=== PATIENT | male | born 1950 | race Caucasian/White ===

== ENCOUNTER → 2021-05-30 | Outpatient (CLI) | payer MEDICARE ==
[~2021-05-30] MED LIST: ALFU10 PO; ASPI325 PO; Aspirin EC81 MG PO; CEPH500 PO; Cipro500 MG PO; EYE; FINA5 PO; Flagyl500 MG PO; HYDACE5 PO; HYDR1TAB94 PO; LATA.005SO OU; META800 PO; NAPR500 PO; NAPR550 PO; OXYACE5T PO; Rapaflo8 MG PO; SENN187 PO; SULTRIDS PO; TIMO.5OPSO BOTHEYES; TIMOPTIC 0.5%1 EACH BOTHEYES; Xalatan2.5 ML BOTHEYES
== END | disposition home or self-care (01) ==
LOC: LAB SHORT 12:00
DX: R31.9 Hematuria, unspecified (principal)
CPT/HCPCS: 87086

== ENCOUNTER → 2021-10-02 | Outpatient (CLI) | payer MEDICARE | END | disposition home or self-care (01) | LOC: LAB SHORT 12:00 | DX: N39.0 Urinary tract infection, site not specified (principal) | CPT/HCPCS: 87077; 87086; 87186 ==

== ENCOUNTER → 2021-10-11 | Outpatient (CLI) | payer MEDICARE | END | disposition home or self-care (01) | LOC: LAB SHORT 13:45 → LAB 13:45 | DX: N39.0 Urinary tract infection, site not specified (principal) | CPT/HCPCS: 87086 ==

== ENCOUNTER → 2022-02-26 | Outpatient (CLI) | payer MEDICARE | END | disposition home or self-care (01) | DX: R30.0 Dysuria (principal) ==

== ENCOUNTER → 2022-03-07 | Outpatient (CLI) | payer MEDICARE | END | disposition home or self-care (01) | LOC: LAB SHORT 12:00 → LAB 12:00 | DX: N40.1 Benign prostatic hyperplasia with lower urinary tract symptoms (principal) | CPT/HCPCS: 87086 ==

== ENCOUNTER → 2022-07-31 | Outpatient (CLI) | payer MEDICARE | END | disposition home or self-care (01) | LOC: LAB SHORT 07:43 → LAB 07:43 | DX: L60.2 Onychogryphosis (principal); B35.1 Tinea unguium | CPT/HCPCS: 88304; 88312 ==

== ENCOUNTER 2022-10-03 10:06 | Inpatient (IN) | payer MEDICARE ==
[2022-10-03] VITALS (21 sets, daily range): BP systolic 76–115; BP diastolic 55–85
[~2022-10-03] VITALS: Ht 182.9 cm; Wt 90.0 kg
[~2022-10-03 10:06] MED LIST changes: +DOCU100 PO; +MIRALAX17 GM PO; +TIMO.25OPS BOTHEYES; -TIMOPTIC 0.5%1 EACH BOTHEYES
[2022-10-03 11:20] LABS: BASOPHILS ABSOLUTE AUTO 0.07 K/mm3 (0.00-0.23); BASOPHILS PERCENT AUTO 1 % (0-2); EOSINOPHILS PERCENT AUTO 0 % (0-6); Hemoglobin 18.5 g/dL (13.5-17.5); IMMATURE GRAN ABSOLUTE AUTO 0.02 K/mm3 (0.00-0.10); IMMATURE GRAN PERCENT AUTO 0 % (0-1); LYMPHOCYTES ABSOLUTE AUTO 1.39 K/mm3 (0.84-5.20); LYMPHOCYTES PERCENT AUTO 18 % (21-46); MONOCYTES ABSOLUTE AUTO 1.18 K/mm3 (0.16-1.47); MONOCYTES PERCENT AUTO 15 % (4-13); Mean Corpuscular HGB 29.4 pg (26.0-34.0); Mean Corpuscular HGB Conc 33.6 g/dL (31.5-36.5); Mean Corpuscular Volume 87 fL (80-100); Mean Platelet Volume 12.1 fL (9.1-12.4); NEUTROPHILS ABSOLUTE AUTO 5.02 K/mm3 (1.96-9.15); NEUTROPHILS PERCENT AUTO 65 % (41-73); Platelet Count 209 K/mm3 (150-400); RDW Coefficient Variation 15.9 % (11.7-14.2); RDW Standard Deviation 49.1 fL (35.1-46.3); White Blood Cell Count 7.68 K/mm3 (4.00-11.30)
[2022-10-03 11:31] LABS: Albumin, Blood 3.3 g/dL (3.4-5.0); Albumin/Globulin Ratio 0.6 (0.8-1.8); Bilirubin, Total 0.6 mg/dL (0.1-1.0); Bun/Creatinine Ratio 38.7 (12.0-20.0); Creatinine, Blood 2.84 mg/dL (0.60-1.20); Globulin, Blood 5.2 g/dL (2.2-4.0); Total Protein, Blood 8.5 g/dL (6.4-8.2)
[2022-10-03 11:45] LABS: Base Excess Venous 10.7 mmol/L; Bicarbonate Venous 31.6 mmol/L (24.0-30.0)
[2022-10-03] MEDS ORDERED: TRILEPTAL PO (15:08)
[2022-10-03] MEDS ORDERED: TERB250 PO (15:08)
[2022-10-03] MEDS ORDERED: OXYB5 PO (15:09)
--- NOTE | 2022-10-03 17:00 | NUR ---
ADMISSION AND TRANSFER TO OR PATIENT ADMITTED TO MEDICAL FOR WITH RESP. FAILURE-HYPOXIA. PATIENT HAS A SMALL BOWEL OBSTRUCTION AND PATIENT CAN'T REMEMBER WHEN HE HAD A GOOD BM. ABD. DISTENDED AND TIGHT. BOWEL TONES ABSENT. PATIENT DENIES ANY NAUSEA. PATIENT ALERT AND ABLE TO ANSWER QUESTIONS. PATIENT EASILY SOB. AUDIBLE WHEEZES AND CONGESTION. PATIENT TITRATED UP TO 6 LITERS O2 PRIOR TO TRANSFERING TO OR/DAY SURGERY FOR PROCEDURE. PRESENT ON THE PHONE WHILE SURGEON DISCUSSED PLAN.
--- NOTE | 2022-10-03 17:52 | NUR ---
PT SOCKS AND WEDDING RING REMOVED PRIOR TO SURGERY, RETURNED TO PT'S ROOM, ROOM 325 AND PLACED INTO HIS BELONGING BAG.
--- NOTE | 2022-10-03 18:48 | NUR ---
REPORT/BELONGINGS TELEPHONE REPORT RECEIVED FROM JULIA SEGURA. PT CURRENTLY IN OR. BELONGINGS BROUGHT TO ICU BY DISCHARGE PLANNER. BELONGINGS BAG PLACED IN ICU 13. BELONGINGS INCLUDE GLASSES, CLOTHING, WALLET WITH ID AND CREDIT CARDS, AND YELLOW RING WITH 5 WHITE STONES.
[2022-10-03 19:52] LABS: PCO2 Arterial 58.7 mmHg (35-45); PO2 Arterial 61.8 mmHg (80-100); pH Blood Arterial 7.36 (7.35-7.45)
[2022-10-03 20:18] LABS: Source, Urine Foley catheter
[2022-10-03 20:31] LABS: Appearance, Urine Hazy (Clear); Blood, Urine 4+ (Neg); Color, Urine Yellow (P-Yellow); Glucose Qualitative, Urine Neg (Neg); Ketones, Urine 1+ (Neg); Leukocyte Esterase, Urine 2+ (Neg); Nitrite, Urine Neg (Neg); Protein, Urine 2+ (Neg); Specific Gravity, Urine 1.025 (1.003-1.022); Urobilinogen, Urine 1+ (Normal)
[2022-10-03 20:54] LABS: Bilirubin, Urine 2+ (Neg)
[2022-10-03 20:56] LABS: Bacteria Many /hpf; Hyaline Casts 0-2 /lpf (0-2); Squamous Epithelial Cells Mod /hpf (Few)
--- NOTE | 2022-10-03 21:01 | NUR ---
PATIENT TO ROOM FROM OR AT 1910. PATIENT INTUBATED AND SEDATED. STARTED ON PROPOFOL WHEN ARRIVED TO ICU. OPEN EYES, FOLLOWS COMMANDS, NODS YES/NO. DENIES PAIN AT THIS TIME. VENT AC VC+ 16/450/5/55% RR 18. LS DIM IN BASES. HR SR 70s. BP STABLE. NG TO LIS, GREEN BILE DRAINING. GILBERT IN PLACE FROM PROCEDURE, CARSON URINE DRAINING TO GRAVITY, UA SENT TO LAB. SURGICAL INCISIONS TO LEFT ABDOMEN OPEN TO AIR AND INTACT. UPDATED ON PATIENT CONDITION.
[2022-10-04] VITALS (56 sets, daily range): BP systolic 70–124; BP diastolic 51–81
[2022-10-04 03:41] LABS: Hematocrit 44.8 % (37.0-53.0); Hemoglobin 14.8 g/dL (13.5-17.5); Mean Corpuscular HGB 29.5 pg (26.0-34.0); Mean Corpuscular Volume 89 fL (80-100); Mean Platelet Volume 12.2 fL (9.1-12.4); Platelet Count 161 K/mm3 (150-400); RDW Coefficient Variation 15.3 % (11.7-14.2); RDW Standard Deviation 50.2 fL (35.1-46.3); Red Blood Cell Count 5.02 M/mm3 (4.30-5.90); White Blood Cell Count 10.15 K/mm3 (4.00-11.30)
[2022-10-04 04:10] LABS: Bun/Creatinine Ratio 52.4 (12.0-20.0); Calcium, Blood 7.5 mg/dL (8.5-10.1); Creatinine, Blood 2.08 mg/dL (0.60-1.20); Potassium, Blood 3.8 mmol/L (3.5-5.5)
--- NOTE | 2022-10-04 06:03 | NUR ---
SHIFT SUMMARY PATIENT REMAINS INTUBATED AND SEDATED ON PROPOFOL, FENTANYL PRN. PATIENT RESPONDS TO VERBAL STIMULI, ABLE TO FOLLOW COMMANDS AND NOD YES/NO. 02 SATS 91% ON VENT AC VC+ 16/450/5/40% RR 18. THICK JUSTIN SECRETIONS SEUCTIONED FROM ETT. HR SR 60. BP HYPOTENSIVE THROUGH THE NIGHT, LEVOPHED STARTED. OG TO LIS 600 MLS DARK GREEN/BLACK BILE DRAINED. SURGICAL INCISIONS REMAIN INTACT AND WNL. BOWEL TONE HYPOACTIVE. GILEBRT PATENT AND DRAINING CARSON URINE TO GRAVITY.
[2022-10-04 06:31] LABS: BAND PERCENT MAN 14 % (0-8); BASOPHILS PERCENT MAN 0 % (0-2); EOSINOPHILS PERCENT MAN 0 % (0-6); LYMPHOCYTES ABSOLUTE MAN 0.81 K/mm3 (0.84-5.20); LYMPHOCYTES PERCENT MAN 8 % (21-46); MONOCYTES PERCENT MAN 6 % (4-13); NEUTROPHILS ABSOLUTE MAN 8.72 K/mm3 (1.96-9.15); SEG NEUTROPHILS PERCENT MAN 72 % (41-73); TOTAL CELLS COUNTED 100
--- NOTE | 2022-10-04 10:15 | NUR ---
PATIENT EDUCATED ON RISK RE: IGNITION SOURCES AND RISK OF INJURY WHILE OXYGEN IS IN USE. PATIENT VERBALIZED UNDERSTANDING OF EDUCATION AND HAD NO FURTHER QUESTIONS AT THIS TIME.
--- NOTE | 2022-10-04 10:30 | NUR ---
PT WAS EXTUBATED AT 0855. PT IS ON NC. A/O X4. DENIES PAIN OR SOB. NG TUBE PUTTING OUT GREEN FLUID. PROVIDING MOUTH SWABS FOR COMFORT OTHERWISE NPO. SWABBING HIS OWN MOUTH AND USING SUCTION NEEDED. OFF LEVOPHED. STATES PT'S BP IS NORMALLY ABOUT 100/60 AT BASELINE. NO SIGN OF DISTRESS.
--- NOTE | 2022-10-04 14:04 | NUR ---
Spoke with Primary RN Sushila and discussed case. Spouse was at bedside but has since left for possibly the day. Sushila reports spouse indicates that Pt is a poor historian and may not remember conversations. Pt resting in bed with his eyes opened. Offered supportive visit. Pt A&OX4. Listened as Pt reports feeling disorientated when he woke this AM and took a little while to orientate self after deductive reasoning. Listened as Pt describes the events leading up to hospital stay. Pt does show some signs of being a poor historian as evidenced by Pt asking this RN "did I tell you how I was disorientated this morning"? Continued supportive visit. Plan: Discuss code status and advanced care planning with Pt when spouse is at bedside. Palliative Care will remain available
--- NOTE | 2022-10-04 17:38 | NUR ---
SUMMARY PT EXTUBATED THIS AM TO NC. ON 6L NOW. A/O X4. DENIES PAIN. GREEN LIQUID FROM NG TUBE. BT'S HYPOACTIVE. ENEMA GIVEN PER DR. LEONARD, NO RESULTS YET. OFF LEVOPHED MOST OF THE DAY. MOUTH SWABS FOR COMFORT, STILL NPO. DOWNGRADED TO SURGICAL STATUS. NO SIGN OF DISTRESS.
--- NOTE | 2022-10-04 19:38 | NUR ---
ASSUMED CARE PATIENT IS ALERT AND ORIENTED X4. DENIES PAIN. 02 SATS 88-92% ON 6L VIA NC. DENIES SOB. HR SR 70s, BP STABLE, DENIES CP/PRESSURE. NG TO JD ROSS BILE DRAINING. MOUTH SWABS PROVIDED FOR DRY MOUTH WHILE PATIENT IS NPO. GILBERT CATH REMOVED. PATIENT EDUCATED ON RISK OF INJURY WHILE USING OXYGEN, NICOTINE PATCH IN PLACE PATIENT VERBALIZED UNDERSTANDING. CALL LIGHT IN REACH
[2022-10-05] VITALS: BP 101/65
--- NOTE | 2022-10-05 00:16 | NUR ---
WHILE INFUSING KEPPRA IN LEFT AC IV THE IV INFILTRATED. CALLED PHARMACY AND NO RECOMMENDED TREATMENT. WILL PULL IV, APPLY PRESSURE AND MONITOR SITE
--- NOTE | 2022-10-05 00:47 | NUR ---
REPORT GIVEN TO MEDICAL FLOOR RN, PATIENT TO ROOM 357 AT APPROX 0045. PATIENT REQUESTED BE NOTIFIED OF ROOM CHANGE IN THE MORNING AND NOT RIGHT NOW
[2022-10-05 01:04] VITALS: BP 101/70
--- NOTE | 2022-10-05 01:30 | NUR ---
TRANSFER PT ARRIVED TO 357 ROUGHLY 0055 FROM ICU 13, 4PER SLIDE TRANSFER TO BED. AOX4. DENIES PAIN, N/V OR DYSPNEA. NG TUBE CLAMPED UPON ARRIVAL & PLACED BACK TO LOW INT SUCTION. ON 6.5L HF O2 c SPO2 >90%. CONDOM CATH PLACED c NO OUTPUT @THIS TIME. ORIENTED TO & CALL LIGHT. WILL MONITOR.
[2022-10-05 04:54] LABS: BASOPHILS ABSOLUTE AUTO 0.01 K/mm3 (0.00-0.23); BASOPHILS PERCENT AUTO 0 % (0-2); EOSINOPHILS PERCENT AUTO 0 % (0-6); Hematocrit 43.3 % (37.0-53.0); Hemoglobin 14.2 g/dL (13.5-17.5); IMMATURE GRAN ABSOLUTE AUTO 0.04 K/mm3 (0.00-0.10); IMMATURE GRAN PERCENT AUTO 1 % (0-1); LYMPHOCYTES ABSOLUTE AUTO 0.87 K/mm3 (0.84-5.20); LYMPHOCYTES PERCENT AUTO 11 % (21-46); MONOCYTES PERCENT AUTO 10 % (4-13); Mean Corpuscular HGB 29.5 pg (26.0-34.0); Mean Corpuscular HGB Conc 32.8 g/dL (31.5-36.5); Mean Corpuscular Volume 90 fL (80-100); Mean Platelet Volume 11.8 fL (9.1-12.4); NEUTROPHILS ABSOLUTE AUTO 6.12 K/mm3 (1.96-9.15); NEUTROPHILS PERCENT AUTO 78 % (41-73); Platelet Count 157 K/mm3 (150-400); RDW Coefficient Variation 15.3 % (11.7-14.2); RDW Standard Deviation 50.4 fL (35.1-46.3); Red Blood Cell Count 4.81 M/mm3 (4.30-5.90); White Blood Cell Count 7.84 K/mm3 (4.00-11.30)
[2022-10-05 05:16] LABS: Calcium, Blood 8.4 mg/dL (8.5-10.1); Magnesium, Blood 2.4 mg/dL (1.6-2.4); Potassium, Blood 3.7 mmol/L (3.5-5.5)
--- NOTE | 2022-10-05 05:43 | NUR ---
SHIFT SUMMARY AOX4, TRANSFER FROM ICU EARLIER IN NIGHT. DENIES N/V, ANY PAIN OR DYSPNEA. VSS. WET, PRODUCTIVE COUGH, SPO2 >90% ON 6.5L HF O2, DOESNT WEAR O2 @BASELINE. NO BM THIS SHIFT, NG TUBE IN R NARES c 350ML DARK BROWN/GREEN DRAINAGE IN CANISTER SINCE ARRIVING TO FLOOR. CALL LIGHT IN REACH, WILL MONITOR.
[2022-10-05 07:45] VITALS: BP 116/77
[2022-10-05 15:17] VITALS: BP 123/81
[2022-10-05 17:20] LABS: Bun/Creatinine Ratio 65.3 (12.0-20.0); Calcium, Blood 8.6 mg/dL (8.5-10.1); Creatinine, Blood 0.83 mg/dL (0.60-1.20); Potassium, Blood 3.9 mmol/L (3.5-5.5)
--- NOTE | 2022-10-05 18:02 | NUR ---
SHIFT SUMMARY POD2 LAP DX LAPAROTOMY WITH VOLVULOUS TAKEDOWN, A/OX4, VSS, STRICT NPO T/O THE SHIFT, SMALL BOWEL FOLLOW THROUGH TODAY WITH FINAL RESULTS NOT YET AVAILABLE TO NURSING STAFF, PAIN TOLERABLE, NG REMOVED FROM SUCTION ONCE SMALL BOWEL FOLLOW THROUGH WAS STARTED, PT HAS DENIED NAUSEA T/O THE SHIFT. PT EDUCATED ON THE IMPORTANCE OF REPORTING ANY AMOUNT OF NAUSEA AFTER THE CONTRAST HAS BEEN GIVEN TO HIM AND THE RISKS OF ASPIRATION IF HE WAS TO VOMIT. NO ACUTE EVENTS THIS SHIFT, CALL LIGHT IN REACH, WILL REPORT TO ONCOMING NOC RN. PT EDUCATED ON RISK OF FIRE AND IGNITION SOURCES WHILE BEING ON OXYGEN. PT HAS NICOTINE PATCH ORDERED AND IN PLACE.
[2022-10-05 19:40] VITALS: BP 126/88
[2022-10-06 04:29] LABS: BASOPHILS ABSOLUTE AUTO 0.02 K/mm3 (0.00-0.23); BASOPHILS PERCENT AUTO 0 % (0-2); EOSINOPHILS PERCENT AUTO 0 % (0-6); Hemoglobin 14.8 g/dL (13.5-17.5); IMMATURE GRAN ABSOLUTE AUTO 0.08 K/mm3 (0.00-0.10); IMMATURE GRAN PERCENT AUTO 1 % (0-1); LYMPHOCYTES ABSOLUTE AUTO 1.17 K/mm3 (0.84-5.20); LYMPHOCYTES PERCENT AUTO 14 % (21-46); MONOCYTES PERCENT AUTO 8 % (4-13); Mean Corpuscular HGB 29.4 pg (26.0-34.0); Mean Corpuscular HGB Conc 32.2 g/dL (31.5-36.5); Mean Corpuscular Volume 91 fL (80-100); Mean Platelet Volume 11.8 fL (9.1-12.4); NEUTROPHILS ABSOLUTE AUTO 6.68 K/mm3 (1.96-9.15); NEUTROPHILS PERCENT AUTO 77 % (41-73); Platelet Count 162 K/mm3 (150-400); RDW Coefficient Variation 15.6 % (11.7-14.2); RDW Standard Deviation 51.8 fL (35.1-46.3); Red Blood Cell Count 5.04 M/mm3 (4.30-5.90); White Blood Cell Count 8.65 K/mm3 (4.00-11.30)
--- NOTE | 2022-10-06 04:38 | NUR ---
EOS NOTE: PATIENT PLEASANT AND COOPERATIVE, A/OX4, BEDREST ON 5L NC, NG TUBE IN PLACE. NO N/V NOTED DURING SHIFT. NOTIFIED OF ST DEPRESSION SLIGHTLY WORSENING SINCE 2099, MADE AWARE. NO NEW ORDERS AT THIS TIME. INCISION SITES ARE C/D/I, NG CLAMPED AT THIS TIME. 10/06-TO COMPLETE SECOND HALF OF FOLLOW THROUGH IN AM. BOWEL SOUNDS HYPOACTIVE THROUGHOUT SHIFT, ABD MILDLY DISTENDED AND MILDLY TENDER.
[2022-10-06 04:51] LABS: Bun/Creatinine Ratio 60.6 (12.0-20.0); Calcium, Blood 8.7 mg/dL (8.5-10.1); Creatinine, Blood 0.81 mg/dL (0.60-1.20); Phosphorus, Blood 1.8 mg/dL (2.5-4.9)
[2022-10-06 05:06] VITALS: BP 132/95
[2022-10-06 07:23] VITALS: BP 151/91
[2022-10-06 15:17] VITALS: BP 115/87
--- NOTE | 2022-10-06 16:23 | NUR ---
K PHOS ADMINISTRATION IV ADMINISTRATION STARTED THEN IV WENT BAD AND WAS PAUSED UNTIL VASCULAR ACCESS WAS REESTABLISHED. CURRENTLY INFUSING
[2022-10-06 17:25] LABS: Bun/Creatinine Ratio 54.2 (12.0-20.0); Calcium, Blood 8.8 mg/dL (8.5-10.1); Creatinine, Blood 0.85 mg/dL (0.60-1.20); Potassium, Blood 3.8 mmol/L (3.5-5.5)
[2022-10-06 20:39] VITALS: BP 124/80
[2022-10-06 22:33] LABS: Bun/Creatinine Ratio 51.7 (12.0-20.0); Calcium, Blood 8.1 mg/dL (8.5-10.1); Creatinine, Blood 0.72 mg/dL (0.60-1.20); Potassium, Blood 3.7 mmol/L (3.5-5.5)
[2022-10-07 02:20] VITALS: BP 126/88
--- NOTE | 2022-10-07 04:05 | NUR ---
RADIOCHEMICAL TECHNICIAN SUMMARY VSS. ALERT AND ORIENTED X 4. NG TUBE TO LOW INT SUCTION. DARK GREEN TINGED OUTPUT. NPO OTHER THAN ICE CHIPS. IVF INFUSING PER MD ORDERS - SOME CHANGES MADE - ANTIBIOTICS INFUSING WELL, SEE MAR FOR DETAILS. O2 PER NC WITH CONT PULSE OX. REMAINS IN THE 90'S, UNLESS GETING OUT OF BED. ASSISTED WITH URINAL, INCONT OF FECES AND LINEN CHANGED. HAS BEEN RESTING QUIETLY OTHERWISE FOR MOST OF THE SHIFT WITH EFW INTERRUPTIONS. CALL LIGHT IN REACH. RECEIVED FIRE IGNITION OXYGEN AND NO SMOKING TEACHING AGAIN EARLIER. CALL LIGHT IN ERACH. WILL CONTINUE TO MONITOR.
[2022-10-07 06:08] LABS: Bun/Creatinine Ratio 53.5 (12.0-20.0); Calcium, Blood 8.2 mg/dL (8.5-10.1); Creatinine, Blood 0.62 mg/dL (0.60-1.20); Potassium, Blood 4.1 mmol/L (3.5-5.5)
[2022-10-07 07:42] VITALS: BP 124/82
--- NOTE | 2022-10-07 07:49 | NUR ---
REMOVED NG TUBE PER MD ORDER. PT TAM WELL. ICE CHIPS PROVIDED.
--- NOTE | 2022-10-07 14:40 | NUR ---
PT HAS TOLERATED ICE CHIPS ALL DAY. ADVANCED DIET TO CLEAR LIQUID DIET AND ADDED ENSURE CLEAR TID WITH MEALS.
[2022-10-07 15:32] VITALS: BP 118/81
--- NOTE | 2022-10-07 19:27 | NUR ---
SHIFT SUMMARY: PT A/O X 4, ONE ASSIST WITH GB/WALKER. PT REPORTS NO PAIN TODAY. PT REPORTES HE IS TOLERATING CLEAR LIQUID DIET BUT HAS POOR INTAKE AT THIS TIME. PT HAD LIQUID BM'S TODAY. PT DENIES NAUSEA AND VOMITING. TITRATED O2 DOWN TO 3 LPM VIA NC AND SATS HAVE BEEN BETWEEN 89-92%. PT IS PLEASANT AND COOPERATIVE WITH CARE. PT EDUCATED ON IGNITION SOURCES AND RISK FOR INJURY WITH USING IGNITION SOURCES WHILE WEARING O2. PT VU. PT IS COMPLIANT WITH WEARING NICOTINE PATCH. PT DENIES HAVING IGNITION SOURCES ON HIM. PT IS CURRENTLY ON 3 LPM VIA NC. PT HAS HAD NO SIGNS OF UTILIZING IGNITION SOURCES WHEN ROUNDED ON.
[2022-10-07 19:31] VITALS: BP 114/79
[2022-10-08 05:18] VITALS: BP 116/78
[2022-10-08 07:08] LABS: BASOPHILS ABSOLUTE AUTO 0.02 K/mm3 (0.00-0.23); BASOPHILS PERCENT AUTO 0 % (0-2); EOSINOPHILS PERCENT AUTO 0 % (0-6); Hematocrit 42.9 % (37.0-53.0); Hemoglobin 14.2 g/dL (13.5-17.5); IMMATURE GRAN ABSOLUTE AUTO 0.08 K/mm3 (0.00-0.10); IMMATURE GRAN PERCENT AUTO 1 % (0-1); LYMPHOCYTES ABSOLUTE AUTO 1.19 K/mm3 (0.84-5.20); LYMPHOCYTES PERCENT AUTO 14 % (21-46); MONOCYTES ABSOLUTE AUTO 0.29 K/mm3 (0.16-1.47); MONOCYTES PERCENT AUTO 3 % (4-13); Mean Corpuscular HGB 29.3 pg (26.0-34.0); Mean Corpuscular HGB Conc 33.1 g/dL (31.5-36.5); Mean Corpuscular Volume 89 fL (80-100); Mean Platelet Volume 11.2 fL (9.1-12.4); NEUTROPHILS ABSOLUTE AUTO 6.92 K/mm3 (1.96-9.15); NEUTROPHILS PERCENT AUTO 82 % (41-73); Platelet Count 121 K/mm3 (150-400); RDW Coefficient Variation 14.9 % (11.7-14.2); RDW Standard Deviation 48.7 fL (35.1-46.3); Red Blood Cell Count 4.84 M/mm3 (4.30-5.90)
[2022-10-08 07:27] LABS: Albumin, Blood 2.3 g/dL (3.4-5.0); Albumin/Globulin Ratio 0.6 (0.8-1.8); Bilirubin, Total 1.4 mg/dL (0.1-1.0); Bun/Creatinine Ratio 57.4 (12.0-20.0); Calcium, Blood 8.7 mg/dL (8.5-10.1); Creatinine, Blood 0.59 mg/dL (0.60-1.20); Globulin, Blood 3.6 g/dL (2.2-4.0); Potassium, Blood 4.4 mmol/L (3.5-5.5); Total Protein, Blood 5.9 g/dL (6.4-8.2)
--- NOTE | 2022-10-08 07:47 | NUR ---
O2 INCREASED TO 8L HIGH FLOW AGAIN TO MAINTAIN SATS IN UPPER 80'S. COARSE LUNG SOUNDS. BM LAST NIGHT DURING SHIFT CHANGE. TOLERATING DIET WITHOUT N/V. X1 ASSIST TO BSC. AO, PLEASANT, VSS.
[2022-10-08 07:52] VITALS: BP 119/82
--- NOTE | 2022-10-08 11:25 | NUR ---
CALLED DR WALKER- CONSULTED FOR POSSIBLE EGD YESTERDAY. SPOKE TO PLAN IS FOR EGD TOMORROW CLEAR LIQUID BREAKFAST THEN NPO AFTER THAT. OK TO ADVANCE DIET TOLLERATED TODAY.
[2022-10-08 15:52] VITALS: BP 143/85
--- NOTE | 2022-10-08 16:46 | NUR ---
CALLED DR LAW- PT HAS HAD 5-6 LOOSE STOOLS T/O THE SHIFT TODAY. SPOKE TO DR LAW AND RECIEVED ORDER TO CHANGE MILK OF MAG TO PRN AND DC THE REGLAN. PT HAS NOT RECIEVED ANY THIS SHIFT (HELD FOR LOOSE STOOLS) MD AWARE.
--- NOTE | 2022-10-08 18:22 | NUR ---
CALLED DR LAW- PT HAD 2 DOSES OF IV SOLUMEDROL TODAY. RECIEVED ORDER TO HOLD 1800 DOSE TONIGHT AND START AT 0900 IN THE AM SCHEDULED BID.
--- NOTE | 2022-10-08 19:03 | NUR ---
SHIFT SUMMARY- PT ALERT AND ORIENTED 1PA TO THE BATHROOM T/O THE DAY. PT HAS HAD 6 LOOSE STOOLS T/O THE SHIFT TODAY. REGLAN HELD FOR CJ THEN DC'D IN THE EVENING BY . PLAN IS FOR THE PT TO HAVE CLEAR LIQUIDS FOR BREAKFAST TOMORROW AND THEN NPO AFTER THAT FOR EGD. ABX RETIMED FOR THIS EVENING. POKE TO MD AND IV STEROIDS HELD THIS EVENING (SEE PREVIOUS NOTES FOR DETAILS). PT IS CURRENTLY IN BED CALL LIGHT IN REACH HE HAS BEEN TITRATED DOWN TO 4L VIA NC. BEDSIDE REPORT COMPLETED WITH NIGHT RN.
[2022-10-08 19:25] VITALS: BP 119/75
[2022-10-09 01:35] VITALS: BP 117/88
[2022-10-09 06:16] LABS: BASOPHILS ABSOLUTE AUTO 0.02 K/mm3 (0.00-0.23); BASOPHILS PERCENT AUTO 0 % (0-2); EOSINOPHILS ABSOLUTE AUTO 0.02 K/mm3 (0.00-0.68); EOSINOPHILS PERCENT AUTO 0 % (0-6); Hematocrit 40.3 % (37.0-53.0); Hemoglobin 13.6 g/dL (13.5-17.5); IMMATURE GRAN PERCENT AUTO 1 % (0-1); LYMPHOCYTES ABSOLUTE AUTO 2.81 K/mm3 (0.84-5.20); LYMPHOCYTES PERCENT AUTO 32 % (21-46); MONOCYTES PERCENT AUTO 10 % (4-13); Mean Corpuscular HGB 29.8 pg (26.0-34.0); Mean Corpuscular HGB Conc 33.7 g/dL (31.5-36.5); Mean Corpuscular Volume 88 fL (80-100); Mean Platelet Volume 12.4 fL (9.1-12.4); NEUTROPHILS ABSOLUTE AUTO 5.06 K/mm3 (1.96-9.15); NEUTROPHILS PERCENT AUTO 57 % (41-73); Platelet Count 121 K/mm3 (150-400); RDW Coefficient Variation 14.8 % (11.7-14.2); RDW Standard Deviation 47.8 fL (35.1-46.3); Red Blood Cell Count 4.57 M/mm3 (4.30-5.90); White Blood Cell Count 8.91 K/mm3 (4.00-11.30)
[2022-10-09 06:32] LABS: Albumin, Blood 2.2 g/dL (3.4-5.0); Albumin/Globulin Ratio 0.7 (0.8-1.8); Bilirubin, Total 1.3 mg/dL (0.1-1.0); Bun/Creatinine Ratio 45.2 (12.0-20.0); Calcium, Blood 8.2 mg/dL (8.5-10.1); Creatinine, Blood 0.64 mg/dL (0.60-1.20); Globulin, Blood 3.2 g/dL (2.2-4.0); Potassium, Blood 3.7 mmol/L (3.5-5.5); Total Protein, Blood 5.4 g/dL (6.4-8.2)
--- NOTE | 2022-10-09 06:49 | NUR ---
O2 SATS ARE STABLE ON 4L NC. TOLERATED CL DIET, HAD ONE 5 MINUTE STRETCH OF NAUSEA THAT RESOLVED WITHOUT INTERVENTION DURING THE NIGHT. AMBULATES TO TOILET WITH SBA, HAD BM LAST NIGHT. AO, VSS, PLEASANT, CALLS APPROPRIATELY, UNEVENTFUL NIGHT.
[2022-10-09 08:10] VITALS: BP 112/80
[2022-10-09 14:53] VITALS: BP 142/99
[2022-10-09 15:36] VITALS: BP 155/93
--- NOTE | 2022-10-09 15:40 | NUR ---
CRISTO IV SITE PATENT/INTACT.
--- NOTE | 2022-10-09 16:26 | NUR ---
[address] MANZO ON PHONE. CANCELLED PROCEDURE DUE TO AN EMERGENCY. INFORMED PT AND PT WAS OK. WILL RESCHEDULE TOMORROW AT 0730 WITH MAC. REPORT TO BE GIVEN TO IMELDA MIRELES
[2022-10-09 19:10] VITALS: BP 127/84
--- NOTE | 2022-10-09 19:24 | NUR ---
SHIFT SUMMARY- PT WENT DOWN FOR EGD THIS EVENING AND IT WAS CANCELLED. PLAN IS FOR CLEAR LIQUID TONIGHT AND NPO AT MIDNIGHT. PT TO GO FOR EGD TOMORROW AT 0730. NURSE NOTIFY IN TO HOLD MORNING LOVENOX. PT STILL HAVING LOOSE STOOL, BUT LESS FREQUENT TODAY. LAP SITES ON THE LEFT ABDOMEN ARE C/D/I. PASSED ON IN BEDSIDE REPORT TO NIGHT RN. PT IN BED, CALL LIGHT IN REACH, HE TOLD STAFF AT SHIFT CHANGE HE IS AWARE HE IS NOT ALLOWED TO SMOKE OR USE OPEN FLAME IN THE HOSPITAL, OR WHILE ON O2. TEACHING HAS BEEN SUCCESSFUL.
[2022-10-10 02:36] VITALS: BP 110/72
--- NOTE | 2022-10-10 05:30 | NUR ---
SHIFT SUMMARY MULTIPLE INCONTINENT/CONTINENT EPISODES OF LOOSE STOOL. OTHER THAN THAT NO C/O PAIN. NPO SINCE MIDNIGHT AWAITING EGD
[2022-10-10 06:43] LABS: BASOPHILS ABSOLUTE AUTO 0.01 K/mm3 (0.00-0.23); BASOPHILS PERCENT AUTO 0 % (0-2); EOSINOPHILS ABSOLUTE AUTO 0.01 K/mm3 (0.00-0.68); EOSINOPHILS PERCENT AUTO 0 % (0-6); Hematocrit 40.7 % (37.0-53.0); Hemoglobin 13.6 g/dL (13.5-17.5); IMMATURE GRAN ABSOLUTE AUTO 0.05 K/mm3 (0.00-0.10); IMMATURE GRAN PERCENT AUTO 1 % (0-1); LYMPHOCYTES ABSOLUTE AUTO 1.83 K/mm3 (0.84-5.20); LYMPHOCYTES PERCENT AUTO 24 % (21-46); MONOCYTES ABSOLUTE AUTO 0.73 K/mm3 (0.16-1.47); MONOCYTES PERCENT AUTO 9 % (4-13); Mean Corpuscular HGB 29.6 pg (26.0-34.0); Mean Corpuscular HGB Conc 33.4 g/dL (31.5-36.5); Mean Corpuscular Volume 89 fL (80-100); Mean Platelet Volume 12.5 fL (9.1-12.4); NEUTROPHILS ABSOLUTE AUTO 5.12 K/mm3 (1.96-9.15); NEUTROPHILS PERCENT AUTO 66 % (41-73); Platelet Count 123 K/mm3 (150-400); RDW Coefficient Variation 14.6 % (11.7-14.2); RDW Standard Deviation 47.3 fL (35.1-46.3); Red Blood Cell Count 4.59 M/mm3 (4.30-5.90); White Blood Cell Count 7.75 K/mm3 (4.00-11.30)
--- NOTE | 2022-10-10 06:47 | NUR ---
10/10/22 [address] JENSEN, SEE ANESTHESIA RECORDS.
[2022-10-10 06:53] LABS: Bun/Creatinine Ratio 33.7 (12.0-20.0); Calcium, Blood 8.3 mg/dL (8.5-10.1); Creatinine, Blood 0.65 mg/dL (0.60-1.20); Potassium, Blood 4.2 mmol/L (3.5-5.5)
[2022-10-10 07:02] VITALS: BP 121/80
[2022-10-10 07:57] VITALS: BP 104/78
[2022-10-10 13:23] VITALS: BP 111/60
--- NOTE | 2022-10-10 14:36 | NUR ---
LATE ENTRY-FALL PT FOUND ON GROUND AFTER UNIT RECIEVED A CALL FROM HIS SAYING HE HAD FALLEN. HEAD TO TOE ASSESSMENT PREFORMED. VITALS ASSESSED. PT DENIES HITTING HEAD. LIFT USED TO PLACE PT IN BED. MD NOTIFIED. POST FALL ASSESSMENT COMPLETED. PT DENIES ANY PAIN. NO ABRASIONS OR BRUISES NOTED AT THE TIME OF THE ASSESSMENT. PT ALERT AND ORIENTED X4. PT REPORTS THAT HE LOST HIS BALANCE WHEN ATTEMPTING TO TRANSFER FROM CHAIR TO BED. INITIATED HIGH FALL RISK PRECAUTIONS AND INTERVENTIONS. PT RE-EDUCATED ON THE IMPORTANCE OF CALLING BEFORE ATTEMPTING TO GET OUT OF BED OR CHAIR. OR IF ANY ASSISTANCE IS NEEDED. PT STATED THAT HE UNDERSTOOD AND WILL CALL FOR STAFF.
[2022-10-10 15:10] LABS: 25-HYDROXY, VITAMIN D-2 2.4 ng/mL (.)
[2022-10-10 15:15] VITALS: BP 113/75
--- NOTE | 2022-10-10 18:16 | NUR ---
SHIFT SUMMARY- PT IS ALERT AND ORIENTED X4. NO PAIN OR INJURY REPORTED OR NOTED SINCE FOUND DOWN AFTER LUNCH. PT HAS CALLED APPROPRIATELY AND IS COOPERATIVE WITH FALL RISK SAFETY INTERVENTIONS. PT AND FAMILY ARE CURRENT SMOKERS. PT ON 2LNC. EDUCATION PROVIDED ON RISKS OF INJURY WHILE USING AN IGNITION SOURCE AROUND OXYGEN. PT AND FAMILY VERBALIZES UNDERSTANDING. PT AND FAMILY DENY HAVING ANY IGNITION SOURCES ON THEM OR IN ITEMS.
[2022-10-10 20:01] VITALS: BP 106/81
[2022-10-11 02:15] VITALS: BP 99/69
--- NOTE | 2022-10-11 05:59 | NUR ---
SHIFT SUMMARY NO C/O PAIN THROUGHOUT SHIFT. PT SLEPT MOST OF THE NIGHT, PT REPORTS 2-3 STOOLS ON HEAVY THREADER WHICH IS GREAT IMPROVEMENT FROM PREVIOUS NIGHT. PT CALLED BEFORE GETTING OOB. PT EAGER TO BE DISCHARGED. Q1H FIRE SAFETY CHECKS COMPLETED WITH NO SOURCES OF IGNITION.
--- NOTE | 2022-10-11 06:05 | NUR ---
SHIFT SUMMARY PT C/O PAIN MOST OF THE SHIFT, HE WOULD FALL ASLEEP TEMPORARILY AND THEN REQUEST MORE PAIN MEDICATION SHORTLY AFTER. BEST REPORTED PAIN CONTROL WAS AFTER FENTANYL ADMIN. 2 EPISODES OF EMESIS, THE FIRST EPISODE WAS 100CC OF BROWN BILE AND PT REFUSED ZOFRAN. SECOND EPISODE WAS 400CC OF BROWN BILE IN WHICH HE WAS AGREEABLE TO ZOFRAN. NO FUTHER EMESIS NOTED. DR. LAGUERRE NOTIFIED OF PT'S 5 BEAT RUN OF ASYMPTOMATIC VTACH AROUND 0130. NO NEW ORDERS AT THIS TIME. PT TO HAVE MORNING LABS DRAWN. NO BM THIS SHIFT. Q1H FIRE SAFETY CHECKS COMPLETED WITH NO SOURCES OF IGNITION FOUND.
[2022-10-11 06:09] LABS: BASOPHILS ABSOLUTE AUTO 0.01 K/mm3 (0.00-0.23); BASOPHILS PERCENT AUTO 0 % (0-2); EOSINOPHILS ABSOLUTE AUTO 0.05 K/mm3 (0.00-0.68); EOSINOPHILS PERCENT AUTO 1 % (0-6); Hematocrit 39.2 % (37.0-53.0); Hemoglobin 13.1 g/dL (13.5-17.5); IMMATURE GRAN ABSOLUTE AUTO 0.07 K/mm3 (0.00-0.10); IMMATURE GRAN PERCENT AUTO 1 % (0-1); LYMPHOCYTES ABSOLUTE AUTO 2.57 K/mm3 (0.84-5.20); LYMPHOCYTES PERCENT AUTO 34 % (21-46); MONOCYTES ABSOLUTE AUTO 0.89 K/mm3 (0.16-1.47); MONOCYTES PERCENT AUTO 12 % (4-13); Mean Corpuscular HGB 29.8 pg (26.0-34.0); Mean Corpuscular HGB Conc 33.4 g/dL (31.5-36.5); Mean Corpuscular Volume 89 fL (80-100); Mean Platelet Volume 12.6 fL (9.1-12.4); NEUTROPHILS ABSOLUTE AUTO 4.06 K/mm3 (1.96-9.15); NEUTROPHILS PERCENT AUTO 53 % (41-73); Platelet Count 120 K/mm3 (150-400); RDW Coefficient Variation 14.6 % (11.7-14.2); RDW Standard Deviation 47.5 fL (35.1-46.3); White Blood Cell Count 7.65 K/mm3 (4.00-11.30)
[2022-10-11 06:42] LABS: Bun/Creatinine Ratio 28.4 (12.0-20.0); Calcium, Blood 8.1 mg/dL (8.5-10.1); Creatinine, Blood 0.81 mg/dL (0.60-1.20); Potassium, Blood 3.8 mmol/L (3.5-5.5)
[2022-10-11 07:58] VITALS: BP 98/78
[2022-10-11] MEDS ORDERED: NICO21TP TOP (14:43)
[2022-10-11] MEDS ORDERED: METO5A PO (14:44)
[2022-10-11] MEDS ORDERED: PRED20 PO (14:45)
[2022-10-11 15:16] LABS: SARS-Cov-2 (COVID-19) PCR, MMC NEGATIVE (NEGATIVE)
--- NOTE | 2022-10-11 18:14 | NUR ---
DISCHARGE-LATE ENTRY PT DISCHARGED TO SNF, TRANSPORTED BY FAMILY. PT FAMILY HAD QUESTIONS REGARDING RESULTS OF CT. DR. MENDOZA CAME TO THE BEDSIDE TO TALK WITH PT FAMILY. PT ALERT AND ORIENTED X4, SBA FWW.
== END 2022-10-11 16:21 | DRG 853 ==
LOC: ER 10:06 → MEDS 12:45 → ICUE 12:45 → MEDS 15:23 → ICUE 18:34 → MEDS 10-05 00:53 → ENPENDDIS 10-11 13:10 → MEDS 10-11 16:21
PROVIDERS: Family Medicine; Hospitalist; Internal Medicine Critical Care Medicine; Physician Assistant; Student in an Organized Health Care Education/Training Program; Surgery; ADMIT Internal Medicine
PROC: 0DJD4ZZ Inspection of Lower Intestinal Tract, Percutaneous Endoscopic Approach (ICD-10-PCS; 2022-10-03)
PROC: 0DN84ZZ Release Small Intestine, Percutaneous Endoscopic Approach (ICD-10-PCS; 2022-10-03)
PROC: 0DS84ZZ Reposition Small Intestine, Percutaneous Endoscopic Approach (ICD-10-PCS; 2022-10-03)
PROC: 0T9B70Z Drainage of Bladder with Drainage Device, Via Natural or Artificial Opening (ICD-10-PCS; 2022-10-03)
PROC: 0D9670Z Drainage of Stomach with Drainage Device, Via Natural or Artificial Opening (ICD-10-PCS; 2022-10-03)
PROC: 5A1935Z Respiratory Ventilation, Less than 24 Consecutive Hours (ICD-10-PCS; 2022-10-03)
PROC: 0BH17EZ Insertion of Endotracheal Airway into Trachea, Via Natural or Artificial Opening (ICD-10-PCS; 2022-10-03)
PROC: 3E03329 Introduction of Other Anti-infective into Peripheral Vein, Percutaneous Approach (ICD-10-PCS; principal; 2022-10-03 17:30)
PROC: 3E033XZ Introduction of Vasopressor into Peripheral Vein, Percutaneous Approach (ICD-10-PCS; 2022-10-04)
PROC: 4A033R1 Measurement of Arterial Saturation, Peripheral, Percutaneous Approach (ICD-10-PCS; 2022-10-07)
PROC: 0DB98ZX Excision of Duodenum, Via Natural or Artificial Opening Endoscopic, Diagnostic (ICD-10-PCS; 2022-10-10)
PROC: 0DB68ZX Excision of Stomach, Via Natural or Artificial Opening Endoscopic, Diagnostic (ICD-10-PCS; 2022-10-10)
PROC: 0DB58ZX Excision of Esophagus, Via Natural or Artificial Opening Endoscopic, Diagnostic (ICD-10-PCS; 2022-10-10)
PROC: 0DB48ZX Excision of Esophagogastric Junction, Via Natural or Artificial Opening Endoscopic, Diagnostic (ICD-10-PCS; 2022-10-10)
DX: A41.51 Sepsis due to Escherichia coli [E. coli] (principal); G93.41 Metabolic encephalopathy; J69.0 Pneumonitis due to inhalation of food and vomit; J96.01 Acute respiratory failure with hypoxia; J96.02 Acute respiratory failure with hypercapnia; R65.21 Severe sepsis with septic shock; J18.9 Pneumonia, unspecified organism; K56.2 Volvulus; K56.699 Other intestinal obstruction unspecified as to partial versus complete obstruction; N17.9 Acute kidney failure, unspecified; K31.1 Adult hypertrophic pyloric stenosis; E87.0 Hyperosmolality and hypernatremia; G40.209 Localization-related (focal) (partial) symptomatic epilepsy and epileptic syndromes with complex partial seizures, not intractable, without status epilepticus; K29.80 Duodenitis without bleeding; K29.40 Chronic atrophic gastritis without bleeding; K20.90 Esophagitis, unspecified without bleeding; Z20.822 Contact with and (suspected) exposure to COVID-19; B35.1 Tinea unguium; H40.9 Unspecified glaucoma; K31.84 Gastroparesis; E83.39 Other disorders of phosphorus metabolism; E83.51 Hypocalcemia; K59.09 Other constipation; N40.0 Benign prostatic hyperplasia without lower urinary tract symptoms; N39.41 Urge incontinence; C67.9 Malignant neoplasm of bladder, unspecified; K42.9 Umbilical hernia without obstruction or gangrene; K40.90 Unilateral inguinal hernia, without obstruction or gangrene, not specified as recurrent; K31.89 Other diseases of stomach and duodenum; J43.9 Emphysema, unspecified; F17.210 Nicotine dependence, cigarettes, uncomplicated; Z96.611 Presence of right artificial shoulder joint; Z79.891 Long term (current) use of opiate analgesic; Z79.899 Other long term (current) drug therapy; Z98.890 Other specified postprocedural states; Z98.41 Cataract extraction status, right eye; Z98.42 Cataract extraction status, left eye; Z99.81 Dependence on supplemental oxygen
CPT/HCPCS: 36415; 36600; 70450; 71045; 71046; 74176; 74250; 80048; 80053; 81001; 82306; 82330; 82652; 82803; 83605; 83735; 83880; 83970; 84100; 84133; 84145; 84300; 85025; 87040; 87077; 87086; 87186; 88305; 88342; 93005; 93010; 94002; 94003; 94640; 94644; 94664; 94760; 94762; 96365; 96367; 96375; 97110; 97110-CQ; 97116; 97116-CQ; 97161; 97530; 97530-CQ; 99285-25; A9270; J0295; J0612; J0696; J1100; J1650; J1953; J2001; J2370; J2405; J2543; J2704; J2920; J2930; J3010; J7030; J7042; J7050; J7060; J7120; J7121; J7512; U0002

== ENCOUNTER 2023-01-15 19:31 | Inpatient (IN) | payer MEDICARE ==
[~2023-01-15] VITALS: Ht 182.9 cm; Wt 89.8 kg
[~2023-01-15 19:31] MED LIST changes: +METO5A PO; +NICO21TP TOP; +OXYB5 PO; +PRED20 PO; +TERB250 PO; +TRILEPTAL PO
[2023-01-15 19:55] LABS: BASOPHILS ABSOLUTE AUTO 0.01 K/mm3 (0.00-0.23); BASOPHILS PERCENT AUTO 0 % (0-2); EOSINOPHILS PERCENT AUTO 0 % (0-6); Hematocrit 42.5 % (37.0-53.0); Hemoglobin 13.8 g/dL (13.5-17.5); IMMATURE GRAN ABSOLUTE AUTO 0.01 K/mm3 (0.00-0.10); IMMATURE GRAN PERCENT AUTO 0 % (0-1); LYMPHOCYTES ABSOLUTE AUTO 1.66 K/mm3 (0.84-5.20); LYMPHOCYTES PERCENT AUTO 30 % (21-46); MONOCYTES ABSOLUTE AUTO 0.75 K/mm3 (0.16-1.47); MONOCYTES PERCENT AUTO 14 % (4-13); Mean Corpuscular HGB Conc 32.5 g/dL (31.5-36.5); Mean Corpuscular Volume 92 fL (80-100); Mean Platelet Volume 10.9 fL (9.1-12.4); NEUTROPHILS ABSOLUTE AUTO 3.05 K/mm3 (1.96-9.15); NEUTROPHILS PERCENT AUTO 56 % (41-73); Platelet Count 204 K/mm3 (150-400); RDW Standard Deviation 51.2 fL (35.1-46.3); White Blood Cell Count 5.48 K/mm3 (4.00-11.30)
[2023-01-15 20:29] LABS: Albumin, Blood 3.2 g/dL (3.4-5.0); Albumin/Globulin Ratio 0.8 (0.8-1.8); Bilirubin, Total 0.3 mg/dL (0.1-1.0); Bun/Creatinine Ratio 48.7 (12.0-20.0); Calcium, Blood 8.4 mg/dL (8.5-10.1); Creatinine, Blood 0.8 mg/dL (0.60-1.20); Globulin, Blood 4.1 g/dL (2.2-4.0); Potassium, Blood 4.6 mmol/L (3.5-5.5); Total Protein, Blood 7.3 g/dL (6.4-8.2)
[2023-01-16] VITALS (15 sets, daily range): BP systolic 103–147; BP diastolic 65–93
[2023-01-16 02:30] LABS: Source, Urine Clean Catch
[2023-01-16 02:33] LABS: Bilirubin, Urine Neg (Neg); Blood, Urine 2+ (Neg); Glucose Qualitative, Urine Neg (Neg); Ketones, Urine Neg (Neg); Leukocyte Esterase, Urine 3+ (Neg); Nitrite, Urine Neg (Neg); Protein, Urine 2+ (Neg); Urobilinogen, Urine NORM (Normal)
[2023-01-16 02:51] LABS: Appearance, Urine Hazy (Clear); Color, Urine Yellow (P-Yellow)
[2023-01-16 02:52] LABS: Bacteria Many /hpf; Squamous Epithelial Cells Rare /hpf (Few); White Blood Cells, Urine 50-100 /hpf (0-5)
--- NOTE | 2023-01-16 06:23 | NUR ---
A/O PLEASENT MAN MINIMAL R INGUINAL PAIN WAITING SX FOR HERNIA. VSS ANTIBIOTIC PLUS ADMISSION DONE. PT SLEEPING
[2023-01-16 07:05] LABS: BASOPHILS PERCENT AUTO 0 % (0-2); EOSINOPHILS PERCENT AUTO 0 % (0-6); Hemoglobin 12.4 g/dL (13.5-17.5); IMMATURE GRAN ABSOLUTE AUTO 0.01 K/mm3 (0.00-0.10); IMMATURE GRAN PERCENT AUTO 0 % (0-1); LYMPHOCYTES ABSOLUTE AUTO 1.67 K/mm3 (0.84-5.20); LYMPHOCYTES PERCENT AUTO 34 % (21-46); MONOCYTES ABSOLUTE AUTO 0.58 K/mm3 (0.16-1.47); MONOCYTES PERCENT AUTO 12 % (4-13); Mean Corpuscular HGB 29.8 pg (26.0-34.0); Mean Corpuscular HGB Conc 32.6 g/dL (31.5-36.5); Mean Corpuscular Volume 91 fL (80-100); NEUTROPHILS ABSOLUTE AUTO 2.65 K/mm3 (1.96-9.15); NEUTROPHILS PERCENT AUTO 54 % (41-73); Platelet Count 179 K/mm3 (150-400); RDW Coefficient Variation 14.8 % (11.7-14.2); RDW Standard Deviation 50.5 fL (35.1-46.3); Red Blood Cell Count 4.16 M/mm3 (4.30-5.90); White Blood Cell Count 4.91 K/mm3 (4.00-11.30)
[2023-01-16 07:19] LABS: Albumin, Blood 2.8 g/dL (3.4-5.0); Anion Gap 1 mmol/L (6-16); Blood Urea Nitrogen 35 mg/dL (8-24); Bun/Creatinine Ratio 42.2 (12.0-20.0); CO2, Blood 27 mmol/L (21-32); Calcium, Blood 7.9 mg/dL (8.5-10.1); Chloride, Blood 115 mmol/L (98-108); Creatinine, Blood 0.83 mg/dL (0.60-1.20); Glomerular Filtration Rate 92 (60-); Glucose, Blood 104 mg/dL (70-99); Magnesium, Blood 2.2 mg/dL (1.6-2.4); Phosphorus, Blood 3.1 mg/dL (2.5-4.9); Potassium, Blood 4.3 mmol/L (3.5-5.5); Sodium, Blood 143 mmol/L (136-145)
--- NOTE | 2023-01-16 12:03 | NUR ---
PATIENT INTO DAY SURG FROM [facility]. TO TX TO SURG FLOOR AFTER SURGERY. PATIENT ABLE TO TRANSFER TO BED WITH MINIMAL ASSIST. ONN 2LNC. DENIES PAINN NAUSEA AT THIS TIME. History, Chart, Medications and Allergies reviewed before start of procedure.Patient confirms NPO status and agrees with scheduled surgery. Surgical site prepped with 2% Chlorhexidine cloth wipe.
--- NOTE | 2023-01-16 13:00 | NUR ---
1100-PT TRANSFERED TO DAY SURGERY VIA [facility]. CONTINUE POC.
--- NOTE | 2023-01-16 16:30 | NUR ---
PACU TO 214 PT ARRIVED TO ROOM 214 FROM PACU, PER STENOGRAPHIC COURT REPORTER HE WAS TAKEN TO CT AFTER PACU AND THEN BROUGHT TO HIS ROOM, 6L O2 VIA NC, HE WAS SLEEPY BUT ROUSABLE, LAP SITES ON HIS ABD X4 C/D/I. TRANSFERRED TO HIS BED VIA SLIDER SHEET AND 3 STAFF. DENIES PAIN AT THIS TIME.
--- NOTE | 2023-01-16 18:52 | NUR ---
SHIFT SUMMARY POD0 INGUINAL HERNIA REPAIR, A/O X4, VSS, HE HAS BEEN SLEEPING SINCE ARRIVING TO ROOM 214 BUT WAKES TO VERBAL STIMULI, DENIES PAIN, SCROTAL SWELLING NOTED UPON ARRIVAL BUT NO CHANGES BETWEEN ARRIVAL AND SHIFT CHANGE. NO ACUTE EVENTS THIS SHIFT, CALL LIGHT IN REACH.
[2023-01-17 00:12] VITALS: BP 105/76
[2023-01-17 04:12] VITALS: BP 108/65
--- NOTE | 2023-01-17 07:09 | NUR ---
PT POD#1 WITH INGUINAL HERNIA REPAIR. SCROTAL SWELLING STILL PRESENT. PT IS ALERT AND ORIENTED AND VSS, THOUGH, WHEN SLEEPING, THE PT'S O2 SATS CAN DIP BELOW 88% (TO 87%). PT AROUSES TO AUDITORY STIMULI.
[2023-01-17 07:54] VITALS: BP 119/77
--- NOTE | 2023-01-17 09:30 | NUR ---
ASSUMED CARE OF PATIENT AT THIS TIME. WILL DC'D GILBERT CATH. O2 WEANED TO 2L NC. CONT BIOX IN PLACE. WILL CONT TO MONITOR AND TREAT.
[2023-01-17] MEDS ORDERED: FINA5 PO (11:35)
[2023-01-17] MEDS ORDERED: OXYC5 PO (11:36)
[2023-01-17] MEDS ORDERED: SENN187 PO (11:36)
[2023-01-17] MEDS ORDERED: TAMS.4ER PO (11:36)
[2023-01-17 14:30] VITALS: BP 120/81
--- NOTE | 2023-01-17 14:48 | NUR ---
VOID: PT HAS NOT HAD VOID SINCE GILBERT DC'D. BLADDER SCAN 287. ENCOURAGED PT TO DRINK FLUIDS. PT HAX HX PROSTATE DX. PT HAS HOME MEDS THIS AM. WILL CONT TO MONITOR. WILL DC HOME LATER IF ABLE TO VOID.
--- NOTE | 2023-01-17 16:20 | NUR ---
DISCHARGE: PT DC TO HOME AT THIS TIME WITH SPOUSE. IV DC'D WNL. VERBALIZED UNDERSTANDING OF INSTRUCTIONS, FOLLOW UP, MEDICATIONS AND PROBLEMS TO REPORT. PT LEFT VIA WHEELCHAIR TO CAR WITH BELONGINGS.
== END 2023-01-17 16:00 | disposition home or self-care (01) | DRG 351 ==
LOC: ER 19:31 → MEDS 01-16 03:52 → SURS 01-16 16:21
PROVIDERS: Family Medicine; Student in an Organized Health Care Education/Training Program; Surgery; ADMIT Internal Medicine
PROC: 8E0W4CZ Robotic Assisted Procedure of Trunk Region, Percutaneous Endoscopic Approach (ICD-10-PCS; 2023-01-16)
PROC: 0YU54JZ Supplement Right Inguinal Region with Synthetic Substitute, Percutaneous Endoscopic Approach (ICD-10-PCS; principal; 2023-01-16 11:00)
DX: K40.30 Unilateral inguinal hernia, with obstruction, without gangrene, not specified as recurrent (principal); G40.209 Localization-related (focal) (partial) symptomatic epilepsy and epileptic syndromes with complex partial seizures, not intractable, without status epilepticus; K41.90 Unilateral femoral hernia, without obstruction or gangrene, not specified as recurrent; K45.8 Other specified abdominal hernia without obstruction or gangrene; F17.210 Nicotine dependence, cigarettes, uncomplicated; H40.9 Unspecified glaucoma; J44.9 Chronic obstructive pulmonary disease, unspecified; R01.1 Cardiac murmur, unspecified; N40.0 Benign prostatic hyperplasia without lower urinary tract symptoms; Z98.890 Other specified postprocedural states; Z79.899 Other long term (current) drug therapy; Z96.611 Presence of right artificial shoulder joint; Z87.19 Personal history of other diseases of the digestive system; Z86.79 Personal history of other diseases of the circulatory system
CPT/HCPCS: 36415; 51798; 74177; 80053; 80069; 81001; 83690; 83735; 85025; 87086; 94762; 96374; 96375; 99285-25; A9270; C1781; J0696; J1100; J1885; J2250; J2405; J2704; J2710; J3010; J7030; J7120; Q9967

== ENCOUNTER 2023-07-31 08:55 | Day surgery (SDC) | payer MEDICARE ==
[2023-07-31] VITALS (9 sets, daily range): BP systolic 115–133; BP diastolic 83–91
[~2023-07-31] VITALS: Ht 182.9 cm; Wt 94.4 kg
[~2023-07-31 08:55] MED LIST changes: +FLUC200 PO; +LATA.005SO BOTHEYES; +OXYC5 PO; +Percocet 5-3251 EACH PO; +TAMS.4ER PO
[2023-07-31] MEDS ORDERED: NS 1,000 ML IV ONE ×2 (10:22→10:26)
[2023-07-31] MEDS ORDERED: NS 500 ML IV ONE (10:22)
[2023-07-31] MEDS ORDERED: Heparin Sodium 1000 Units/ML 10ML MDV ONE (10:22)
[2023-07-31] MEDS ORDERED: Midazolam HCl 1MG / ML 2ML Vial ONE ×2 (10:25→12:23)
[2023-07-31] MEDS ORDERED: FentaNYL Citrate 50 MCG/ML 2 ML Injection ONE ×2 (10:26→12:23)
[2023-07-31] MEDS ORDERED: Nitroglycerin 2 MG/20 ML BTL ONE (12:02)
--- NOTE | 2023-07-31 13:02 | NUR ---
PT BACK TO RECOVERY ROOM. R FEMORAL SITE IS SOFE, NO HEMATOMA. DRESSING IS CELAN DRY AND INTACT.
--- NOTE | 2023-07-31 13:03 | NUR ---
PT DROWSY, REMINDED TO KEEP HEAD AND LEGS DOWN..
--- NOTE | 2023-07-31 13:17 | NUR ---
PT BACK TO RECOVERY FROM LAB. GROIN SITE SOFT AND NON-TENDER PER PT. NO BLEEDING NOTED. PT EASILY AROUSABLE AND A&O WHILE AWAKE.
--- NOTE | 2023-07-31 13:57 | NUR ---
GROIN SITE SOFT AND NON-TENDER. NO BLEEDING NOTED. PT SAT UP TO 30 DEGREES. PT EATING LUNCH.
--- NOTE | 2023-07-31 14:13 | NUR ---
PT SITTING UP 30 DEGREES. EATING LUNCH. R GROIN SOFT, NON TENDER, NO BLEEDING.
== END 2023-07-31 13:30 | disposition home or self-care (01) ==
LOC: MHTC 08:55
DX: I72.2 Aneurysm of renal artery (principal); I72.4 Aneurysm of artery of lower extremity; I71.43 Infrarenal abdominal aortic aneurysm, without rupture; I72.3 Aneurysm of iliac artery; F17.210 Nicotine dependence, cigarettes, uncomplicated; Z79.899 Other long term (current) drug therapy
CPT/HCPCS: 36253-LT; 75625; 76937; 99152; 99153; C1760; C1769; C1887; C1894; J1644; J2250; J3010; J7030; J7050; Q9967

== ENCOUNTER 2024-05-31 09:46 | Day surgery (SDC) | payer MEDICARE ==
[~2024-05-31] VITALS: Ht 182.9 cm; Wt 100.0 kg
[2024-05-31] VITALS (16 sets, daily range): BP systolic 93–141; BP diastolic 66–92
[~2024-05-31 09:46] MED LIST changes: +Acetaminophen 500 MG Tab PO SCH; +Aspir 8181 MG PO; +CLOP75 PO; +CeFAZolin Sodium 2,000 MG in NS 100 ML IV SCH; +Chlorhexidine Mouth Care 15 ML UDC MT SCH; +DULCOLAX STOOL100 M3 PO; +GEMTESA75 MG PO; +Lactated Ringer's 1,000 ML IV SCH; +MIRALAX11914 PO; +OxyCODONE HCL 10 MG TABCR PO SCH; +Ropivacaine 0.5% HCl/Pf 123.125 MG,EPINEPHrine HCL 0.25 MG,Ketorolac Tromethamine 15 MG... INFIL SCH; +Tranexamic Acid 1,000 MG in NS 100 ML IV SCH
[2024-05-31] MEDS ORDERED: Tranexamic Acid 100 ML IV SCH (09:50)
[2024-05-31] MEDS ORDERED: CeFAZolin Sodium 2,000 MG VIAL ONE (10:49)
[2024-05-31] MEDS ORDERED: propofoL 60 ML IV ONE (10:49)
[2024-05-31] MEDS ORDERED: Midazolam HCl 1MG / ML 2ML Vial ONE (10:50)
[2024-05-31] MEDS ORDERED: FentaNYL Citrate 50 MCG/ML 2 ML Injection ONE (10:50)
[2024-05-31] MEDS ORDERED: Metoclopramide HCl 5MG / ML 2ML Vial IV PRN (12:00)
[2024-05-31] MEDS ORDERED: Magnesium Hydroxide Conc 10 ML UDC PO PRN (12:00)
[2024-05-31] MEDS ORDERED: Ondansetron HCl 2 MG / ML 2ML Vial IV PRN (12:00)
[2024-05-31] MEDS ORDERED: FLU VACC TS2024-25(6MOS UP)/PF 45 MCG/0.5 ML SYRINGE IM SCH (12:05)
[2024-05-31] MEDS ORDERED: Lactated Ringer's 1,000 ML IV SCH (12:05)
[2024-05-31] MEDS ORDERED: DiphenhydrAMINE HCL 25 MG Cap PO PRN (12:05)
[2024-05-31] MEDS ORDERED: HYDROmorphone HCl/Pf 1MG SYR IV PRN (12:05)
[2024-05-31] MEDS ORDERED: OxyCODONE HCL 5 MG TAB PO PRN ×2 (12:10)
[2024-05-31] MEDS ORDERED: Promethazine HCl 25 MG Tab PO PRN (12:10)
[2024-05-31] MEDS ORDERED: Bisacodyl 10 MG Supp PR PRN (12:10)
[2024-05-31] MEDS ORDERED: ePHEDrine Sulfate 50 MG/ML 1ML Injection ONE (12:30)
[2024-05-31] MEDS ORDERED: Glycopyrrolate 0.2 MG/ML 5ML VIAL ONE (12:37)
[2024-05-31] MEDS ORDERED: Acetaminophen 500 MG Tab PO SCH (16:00)
[2024-05-31] MEDS ORDERED: Trospium Chloride 20 MG Tab PO SCH (16:30)
[2024-05-31] MEDS ORDERED: Ketorolac Tromethamine 15mg Vial IV SCH (18:00)
[2024-05-31] MEDS ORDERED: CeFAZolin Sodium 2,000 MG in NS 100 ML IV SCH (20:15)
[2024-05-31] MEDS ORDERED: OXcarbazepine 300 MG Tab PO SCH (21:00)
[2024-05-31] MEDS ORDERED: Timolol 0.25% Opth Soln 5 ml BOTHEYES SCH (21:00)
[2024-05-31] MEDS ORDERED: Latanoprost 0.005% Opth Soln 2.5 ML BOTHEYES SCH (21:00)
[2024-05-31] MEDS ORDERED: Docusate Sodium 100 MG Cap PO SCH ×2 (21:00)
[2024-05-31] MEDS ORDERED: OXcarbazepine 150 MG Tab PO SCH (21:00)
[2024-06-01 00:20] VITALS: BP 119/81
[2024-06-01 04:53] VITALS: BP 97/85
[2024-06-01 04:59] LABS: BASOPHILS ABSOLUTE AUTO 0.04 K/mm3 (0.00-0.23); BASOPHILS PERCENT AUTO 0 % (0-2); EOSINOPHILS ABSOLUTE AUTO 0.06 K/mm3 (0.00-0.68); EOSINOPHILS PERCENT AUTO 1 % (0-6); Hematocrit 39.1 % (37.0-53.0); IMMATURE GRAN ABSOLUTE AUTO 0.02 K/mm3 (0.00-0.10); IMMATURE GRAN PERCENT AUTO 0 % (0-1); LYMPHOCYTES ABSOLUTE AUTO 1.32 K/mm3 (0.84-5.20); LYMPHOCYTES PERCENT AUTO 15 % (21-46); MONOCYTES ABSOLUTE AUTO 1.05 K/mm3 (0.16-1.47); MONOCYTES PERCENT AUTO 12 % (4-13); Mean Corpuscular HGB 30.3 pg (26.0-34.0); Mean Corpuscular HGB Conc 33.2 g/dL (31.5-36.5); Mean Corpuscular Volume 91 fL (80-100); Mean Platelet Volume 10.3 fL (9.1-12.4); NEUTROPHILS ABSOLUTE AUTO 6.48 K/mm3 (1.96-9.15); NEUTROPHILS PERCENT AUTO 72 % (41-73); Platelet Count 161 K/mm3 (150-400); RDW Coefficient Variation 14.2 % (11.7-14.2); RDW Standard Deviation 47.7 fL (35.1-46.3); Red Blood Cell Count 4.29 M/mm3 (4.30-5.90); White Blood Cell Count 8.97 K/mm3 (4.00-11.30)
[2024-06-01 05:50] LABS: Bun/Creatinine Ratio 39.8 (12.0-20.0); Calcium, Blood 8.6 mg/dL (8.5-10.1); Creatinine, Blood 0.73 mg/dL (0.60-1.20); Magnesium, Blood 1.9 mg/dL (1.6-2.4); Potassium, Blood 4.3 mmol/L (3.5-5.5)
--- NOTE | 2024-06-01 06:10 | NUR ---
SHIFT SUMMARY POD 1 R TKA. NO ACUTE CHANGES OVERNIGHT. VSS. TOLERATING ORALS, DENIES NAUSEA. AQUACEL & MONIQUE WRAP C/D/I c POLAR PACK INTERMITTENTLY IN USE R/T PT UNABLE TO TOLERATE COOL APPLICATION. PT REPORTS PAIN TOLERABLE, MEDICATED PER EMAR. PT DRESSED, RESETING IN CHAIR c LEs ELEVATED. PT UNABLE TO VOID, BLADDER SCAN <300mL, PO FLUIDS ENCOURAGED, IV FLUIDS INFUSING PER EMAR. ANTICIPATED TO WORK c PHYSCIAL THERAPY THEN DISCHARGE HOME LATER TODAY. CALL LIGHT IN REACH, WILL REPORT TO DAY RN.
[2024-06-01 07:14] VITALS: BP 123/86
[2024-06-01] MEDS ORDERED: OXAYDO5 M1 PO (08:52)
[2024-06-01] MEDS ORDERED: Polyethylene Glycol 3350 17 gm PO SCH (09:00)
[2024-06-01] MEDS ORDERED: Latanoprost 0.005% Opth Soln 2.5 ML BOTHEYES SCH (09:00)
[2024-06-01] MEDS ORDERED: Clopidogrel Bisulfate 75 MG Tab PO SCH (09:00)
[2024-06-01] MEDS ORDERED: Rivaroxaban 10 MG Tab PO SCH (09:00)
[2024-06-01] MEDS ORDERED: Aspirin 81 MG TabEC PO SCH (09:00)
[2024-06-01] MEDS ORDERED: Timolol 0.25% Opth Soln 5 ml BOTHEYES SCH (09:00)
[2024-06-01 13:57] VITALS: BP 119/91
--- NOTE | 2024-06-01 14:13 | NUR ---
discharging REVIEWED DC INSTRUCTIONS W/PT AND SPOUSE. VERBALIZED UNDERSTANDING. PROVIDED AQUACEL DRESSINGS TO PT. VSS. PT GOING HOME WITH GILBERT CATH DUE TO URINARY RETENTION.
--- NOTE | 2024-06-01 14:20 | NUR ---
DISCHARGED PT LEFT UNIT IN WC W/POSSESSIONS, DC PAPERWORK AND POLAR PACK IN HAND, ACCOMAPNIED BY SPOUSE WHO WAS PULLING CAR UP TO PATIENT ENTRANCE.
== END 2024-06-01 14:17 | disposition home or self-care (01) ==
LOC: ORSCMMR 09:46 → ORD 10:30 → ORSCMMR 10:30 → ORD 11:00 → SURS 14:49 → ORSCMMR 06-01 14:17
PROVIDERS: Orthopaedic Surgery
PROC: 0SRC0JA Replacement of Right Knee Joint with Synthetic Substitute, Uncemented, Open Approach (ICD-10-PCS; principal; 2024-05-31 10:30)
DX: M17.11 Unilateral primary osteoarthritis, right knee (principal); J44.9 Chronic obstructive pulmonary disease, unspecified; I25.10 Atherosclerotic heart disease of native coronary artery without angina pectoris; E78.5 Hyperlipidemia, unspecified; Z79.02 Long term (current) use of antithrombotics/antiplatelets; Z79.899 Other long term (current) drug therapy
CPT/HCPCS: 27447; 0055T; 36415; 73560-RT; 80048; 83735; 85025; 97110; 97116; 97162; 97530; A9270; C1713; C1776; J0171; J0690; J0735; J1885; J2250; J2704; J2795; J3010; J7120

== ENCOUNTER 2024-10-07 14:02 | Inpatient (IN) | payer MEDICARE ==
[~2024-10-07] VITALS: Ht 182.9 cm; Wt 102.6 kg
[~2024-10-07 14:02] MED LIST changes: -Acetaminophen 500 MG Tab PO SCH; -CeFAZolin Sodium 2,000 MG in NS 100 ML IV SCH; -Chlorhexidine Mouth Care 15 ML UDC MT SCH; -Lactated Ringer's 1,000 ML IV SCH; +OXAYDO5 M1 PO; -OxyCODONE HCL 10 MG TABCR PO SCH; -Ropivacaine 0.5% HCl/Pf 123.125 MG,EPINEPHrine HCL 0.25 MG,Ketorolac Tromethamine 15 MG... INFIL SCH; -Tranexamic Acid 1,000 MG in NS 100 ML IV SCH
[2024-10-07 14:42] LABS: BASOPHILS ABSOLUTE AUTO 0.04 K/mm3 (0.00-0.23); BASOPHILS PERCENT AUTO 1 % (0-2); EOSINOPHILS ABSOLUTE AUTO 0.03 K/mm3 (0.00-0.68); EOSINOPHILS PERCENT AUTO 0 % (0-6); Hematocrit 39.3 % (37.0-53.0); Hemoglobin 13.3 g/dL (13.5-17.5); IMMATURE GRAN ABSOLUTE AUTO 0.03 K/mm3 (0.00-0.10); IMMATURE GRAN PERCENT AUTO 0 % (0-1); LYMPHOCYTES ABSOLUTE AUTO 1.32 K/mm3 (0.84-5.20); LYMPHOCYTES PERCENT AUTO 17 % (21-46); MONOCYTES ABSOLUTE AUTO 0.85 K/mm3 (0.16-1.47); MONOCYTES PERCENT AUTO 11 % (4-13); Mean Corpuscular HGB Conc 33.8 g/dL (31.5-36.5); Mean Corpuscular Volume 88 fL (80-100); NEUTROPHILS ABSOLUTE AUTO 5.33 K/mm3 (1.96-9.15); NEUTROPHILS PERCENT AUTO 70 % (41-73); NRBC ABSOLUTE 0.00 K/mm3 (0.00-0.02); NRBC Auto 0.0 /100 WBC (0.0-0.2); Platelet Count 175 K/mm3 (150-400); RDW Coefficient Variation 13.8 % (11.7-14.2); RDW Standard Deviation 44.5 fL (35.1-46.3)
[2024-10-07 14:54] LABS: Alanine Aminotransfer (ALT/SGP 15.0 U/L (12-78); Albumin, Blood 3.5 g/dL (3.4-5.0); Albumin/Globulin Ratio 0.9 (0.8-1.8); Anion Gap 6.0 mmol/L (3-11); Aspartate Aminotrans (AST/SGOT 12.0 U/L (12-37); Bilirubin, Total 0.5 mg/dL (0.1-1.0); Blood Urea Nitrogen 17.0 mg/dL (8-24); CO2, Blood 29.0 mmol/L (21-32); Calcium, Blood 8.8 mg/dL (8.5-10.1); Chloride, Blood 96.0 mmol/L (98-108); Creatinine, Blood 0.73 mg/dL (0.60-1.20); Globulin, Blood 3.8 g/dL (2.2-4.0); Glucose, Blood 120.0 mg/dL (70-99); Potassium, Blood 3.6 mmol/L (3.5-5.5); Sodium, Blood 127.0 mmol/L (136-145); Total Protein, Blood 7.3 g/dL (6.4-8.2)
[2024-10-07 15:18] LABS: Prothrombin Time Results 10.9 Sec (9.7-11.5)
[2024-10-07] MEDS ORDERED: Magnesium Hydroxide Conc 10 ML UDC PO PRN (16:50)
[2024-10-07] MEDS ORDERED: Ondansetron HCl 2 MG / ML 2ML Vial IV PRN (16:50)
[2024-10-07 17:45] LABS: Source, Urine Straight Cath
[2024-10-07] MEDS ORDERED: Ipratropium/Albuterol SulF 2.5-0.5MG/3 ML Amp INH SCH (17:55)
[2024-10-07 17:58] LABS: Bilirubin, Urine Neg (Neg); Glucose Qualitative, Urine 1+ (Neg); Ketones, Urine 1+ (Neg); Leukocyte Esterase, Urine Neg (Neg); Protein, Urine Neg (Neg); Specific Gravity, Urine 1.010 (1.003-1.022); Urobilinogen, Urine NORM (Normal)
[2024-10-07 18:06] LABS: Color, Urine Pale Yellow (P-Yellow)
[2024-10-07 18:07] LABS: White Blood Cells, Urine 0-2 /hpf (0-5)
[2024-10-07 18:44] VITALS: BP 162/93
[2024-10-07] MEDS ORDERED: Albuterol 2.5 MG/3 ML VIAL INH PRN (18:55)
[2024-10-07 19:05] LABS: Anion Gap 7.0 mmol/L (3-11); Blood Urea Nitrogen 17.0 mg/dL (8-24); CO2, Blood 28.0 mmol/L (21-32); Calcium, Blood 9.2 mg/dL (8.5-10.1); Chloride, Blood 98.0 mmol/L (98-108); Creatinine, Blood 0.67 mg/dL (0.60-1.20); Glucose, Blood 118.0 mg/dL (70-99); Potassium, Blood 3.6 mmol/L (3.5-5.5); Sodium, Blood 129.0 mmol/L (136-145)
[2024-10-07 19:11] VITALS: BP 127/83
[2024-10-07 21:09] LABS: Anion Gap 9.0 mmol/L (3-11); Blood Urea Nitrogen 16.0 mg/dL (8-24); CO2, Blood 26.0 mmol/L (21-32); Calcium, Blood 9.1 mg/dL (8.5-10.1); Chloride, Blood 98.0 mmol/L (98-108); Creatinine, Blood 0.62 mg/dL (0.60-1.20); Glucose, Blood 120.0 mg/dL (70-99); Potassium, Blood 3.5 mmol/L (3.5-5.5); Sodium, Blood 129.0 mmol/L (136-145)
[2024-10-08 01:26] LABS: Anion Gap 7.0 mmol/L (3-11); Blood Urea Nitrogen 14.0 mg/dL (8-24); CO2, Blood 27.0 mmol/L (21-32); Calcium, Blood 8.4 mg/dL (8.5-10.1); Chloride, Blood 100.0 mmol/L (98-108); Creatinine, Blood 0.61 mg/dL (0.60-1.20); Glucose, Blood 116.0 mg/dL (70-99); Potassium, Blood 3.4 mmol/L (3.5-5.5); Sodium, Blood 131.0 mmol/L (136-145)
[2024-10-08 03:33] VITALS: BP 107/93
--- NOTE | 2024-10-08 04:12 | NUR ---
Shift Summary AOx3-4. Thought he was still at [place] in [place] when asked if he knew where he was, but he was easily reoriented. Gotten up to void x 1 in the bathroom, unmeasured. Patient is cooperative. Calling for needs appropriately. Over 500cc scanned in bladder, straight cath'd for 500cc. Patient denied feeling bladder being full, abdominal pain/discomfort, feeling the need to urinate. 1p FWW to bathroom to void. Pt sat at the edge of bed and somehow small amount of blood was noted dripping from one of the steri-strips that had accidently rubbed loose. Cleansed and applied ABD pad wrapped w/ rolled gauze and tape to protect steri-strips. Denies pain. When inquired, patient verbalized last bm was 2 days however declined bowel meds when offered. VSS, afebrile.
[2024-10-08 06:15] LABS: Anion Gap 7.0 mmol/L (3-11); Blood Urea Nitrogen 15.0 mg/dL (8-24); CO2, Blood 28.0 mmol/L (21-32); Calcium, Blood 8.8 mg/dL (8.5-10.1); Chloride, Blood 99.0 mmol/L (98-108); Creatinine, Blood 0.61 mg/dL (0.60-1.20); Glucose, Blood 116.0 mg/dL (70-99); Potassium, Blood 3.6 mmol/L (3.5-5.5); Sodium, Blood 130.0 mmol/L (136-145)
[2024-10-08 07:22] VITALS: BP 118/86
[2024-10-08] MEDS ORDERED: Enoxaparin 40 MG/0.4 ML SYR SC SCH (09:00)
[2024-10-08 09:32] LABS: Anion Gap 9.0 mmol/L (3-11); Blood Urea Nitrogen 18.0 mg/dL (8-24); CO2, Blood 25.0 mmol/L (21-32); Calcium, Blood 8.8 mg/dL (8.5-10.1); Chloride, Blood 99.0 mmol/L (98-108); Creatinine, Blood 0.65 mg/dL (0.60-1.20); Glucose, Blood 171.0 mg/dL (70-99); Potassium, Blood 3.9 mmol/L (3.5-5.5); Sodium, Blood 129.0 mmol/L (136-145)
[2024-10-08] MEDS ORDERED: NS 500 ML IV SCH ×2 (10:20→15:00)
[2024-10-08 13:40] LABS: Anion Gap 9.0 mmol/L (3-11); Blood Urea Nitrogen 17.0 mg/dL (8-24); CO2, Blood 26.0 mmol/L (21-32); Calcium, Blood 8.8 mg/dL (8.5-10.1); Chloride, Blood 99.0 mmol/L (98-108); Creatinine, Blood 0.66 mg/dL (0.60-1.20); Glucose, Blood 131.0 mg/dL (70-99); Potassium, Blood 3.7 mmol/L (3.5-5.5); Sodium, Blood 130.0 mmol/L (136-145)
[2024-10-08 15:40] VITALS: BP 92/71
--- NOTE | 2024-10-08 18:33 | NUR ---
SHIFT SUMMARY PT A&OX4, VSS, RA, 1PA WITH FWW TO BATHROOM TO VOID, 1 BM, 2 UNMEASURED URINATIONS. BLADDER SCAN SHOWED 151, STRAIGHT CATH NOT NEEDED. SODIUM REMAINED 130, PT RECIEVING ORAL SODIUM TABLETS, AND 500ML NS AT 100/HR. PT DECLINED DINNER D/T FEELING NAUSEOUS, DECLINED ZOFRAN, VOMITED SMALL AMOUNT IN EMESIS BAG. PT CALLS APPROPRIATLY, CALL LIGHT IN REACH.
[2024-10-08 19:09] VITALS: BP 111/85
[2024-10-08 19:35] LABS: Anion Gap 8.0 mmol/L (3-11); Blood Urea Nitrogen 19.0 mg/dL (8-24); CO2, Blood 27.0 mmol/L (21-32); Calcium, Blood 8.5 mg/dL (8.5-10.1); Chloride, Blood 100.0 mmol/L (98-108); Creatinine, Blood 0.72 mg/dL (0.60-1.20); Glucose, Blood 121.0 mg/dL (70-99); Potassium, Blood 3.8 mmol/L (3.5-5.5); Sodium, Blood 131.0 mmol/L (136-145)
[2024-10-09 00:16] LABS: BASOPHILS ABSOLUTE AUTO 0.05 K/mm3 (0.00-0.23); BASOPHILS PERCENT AUTO 1 % (0-2); EOSINOPHILS ABSOLUTE AUTO 0.02 K/mm3 (0.00-0.68); EOSINOPHILS PERCENT AUTO 0 % (0-6); Hematocrit 33.0 % (37.0-53.0); Hemoglobin 11.2 g/dL (13.5-17.5); IMMATURE GRAN ABSOLUTE AUTO 0.02 K/mm3 (0.00-0.10); IMMATURE GRAN PERCENT AUTO 0 % (0-1); LYMPHOCYTES ABSOLUTE AUTO 1.95 K/mm3 (0.84-5.20); LYMPHOCYTES PERCENT AUTO 26 % (21-46); MONOCYTES ABSOLUTE AUTO 0.97 K/mm3 (0.16-1.47); MONOCYTES PERCENT AUTO 13 % (4-13); Mean Corpuscular HGB Conc 33.9 g/dL (31.5-36.5); Mean Corpuscular Volume 87 fL (80-100); NEUTROPHILS ABSOLUTE AUTO 4.38 K/mm3 (1.96-9.15); NEUTROPHILS PERCENT AUTO 59 % (41-73); NRBC ABSOLUTE 0.00 K/mm3 (0.00-0.02); NRBC Auto 0.0 /100 WBC (0.0-0.2); Platelet Count 179 K/mm3 (150-400); RDW Coefficient Variation 14.2 % (11.7-14.2); RDW Standard Deviation 45.3 fL (35.1-46.3)
[2024-10-09 00:35] LABS: Alanine Aminotransfer (ALT/SGP 18.0 U/L (12-78); Albumin, Blood 2.9 g/dL (3.4-5.0); Albumin/Globulin Ratio 0.9 (0.8-1.8); Anion Gap 7.0 mmol/L (3-11); Aspartate Aminotrans (AST/SGOT 12.0 U/L (12-37); Bilirubin, Total 0.5 mg/dL (0.1-1.0); Blood Urea Nitrogen 16.0 mg/dL (8-24); CO2, Blood 27.0 mmol/L (21-32); Calcium, Blood 8.1 mg/dL (8.5-10.1); Chloride, Blood 103.0 mmol/L (98-108); Creatinine, Blood 0.76 mg/dL (0.60-1.20); Globulin, Blood 3.2 g/dL (2.2-4.0); Glucose, Blood 123.0 mg/dL (70-99); Potassium, Blood 3.6 mmol/L (3.5-5.5); Sodium, Blood 133.0 mmol/L (136-145); Total Protein, Blood 6.1 g/dL (6.4-8.2)
[2024-10-09 04:05] VITALS: BP 113/72
--- NOTE | 2024-10-09 04:56 | NUR ---
SHIFT SUMMARY: Pt is admitted for hyponatremia and is a full code. Is alert and able to make needs known. ADLs have been mostly 1p. Denies pain or discomfort when asked. Dressing to left inner thigh CDI.
[2024-10-09 07:29] LABS: Anion Gap 8.0 mmol/L (3-11); Blood Urea Nitrogen 13.0 mg/dL (8-24); CO2, Blood 26.0 mmol/L (21-32); Calcium, Blood 8.4 mg/dL (8.5-10.1); Chloride, Blood 105.0 mmol/L (98-108); Creatinine, Blood 0.65 mg/dL (0.60-1.20); Glucose, Blood 114.0 mg/dL (70-99); Potassium, Blood 3.8 mmol/L (3.5-5.5); Sodium, Blood 135.0 mmol/L (136-145)
[2024-10-09 07:30] VITALS: BP 116/88
[2024-10-09 12:55] LABS: Anion Gap 8.0 mmol/L (3-11); Blood Urea Nitrogen 15.0 mg/dL (8-24); CO2, Blood 27.0 mmol/L (21-32); Calcium, Blood 8.8 mg/dL (8.5-10.1); Chloride, Blood 104.0 mmol/L (98-108); Creatinine, Blood 0.72 mg/dL (0.60-1.20); Glucose, Blood 127.0 mg/dL (70-99); Potassium, Blood 4.0 mmol/L (3.5-5.5); Sodium, Blood 135.0 mmol/L (136-145)
[2024-10-09 15:21] VITALS: BP 109/80
--- NOTE | 2024-10-09 16:43 | NUR ---
SHIFT SUMMARY PT AOX4, COOPERATIVE, ABLE TO MAKE NEEDS KNOWN. PT IS 1 PERSON ASSIST, HARD TO STAND UP BUT STABLE WITH FWW ONCE ON FEET. ON ROOM AIR, NO TELE. DOES EXPERIENCE RETENTION, BLADDER SCANNED 429ML AT 1400, STRAIGHT CATHED WITH OUTPUT OF APPROX 500ML. POSSIBLE DC TOMORROW WITH HOME HEALTH. BED IN LOWEST POSITION, CALL LIGHT WITHIN REACH.
--- NOTE | 2024-10-09 20:00 | NUR ---
Education on new med: Oxcarbazepine Mr. Fitch, admitted for hyponatremia w/ a history of seizures, has been prescribed oxcarbazepine. He is alert/oriented x 4 and is actively engaged with conversation. We discussed purpose of medication, trade/generic name + class of medication and its side effects. We also reviewed adverse drug reactions and when to seek medical treatment. In addition to the above, I printed out a Pharmacy Monograph on Oxcarbazepine detailing everything explained above from [facility]'s Drug Data database and provided Mr. Fitch a copy. Of note: Mr. Fitch is high risk for adverse drug reaction of hyponatremia. Referenced drug monograph printout RE s/sx of hyponatremia and what to do. Mr. Fitch verbalized understanding, did not have any questions at this time.
[2024-10-10 03:56] VITALS: BP 99/72
[2024-10-10 05:26] LABS: Hematocrit 34.9 % (37.0-53.0); Hemoglobin 11.4 g/dL (13.5-17.5)
[2024-10-10 05:46] LABS: Anion Gap 6.0 mmol/L (3-11); Blood Urea Nitrogen 20.0 mg/dL (8-24); CO2, Blood 27.0 mmol/L (21-32); Calcium, Blood 8.4 mg/dL (8.5-10.1); Chloride, Blood 107.0 mmol/L (98-108); Creatinine, Blood 0.85 mg/dL (0.60-1.20); Glucose, Blood 111.0 mg/dL (70-99); Potassium, Blood 4.2 mmol/L (3.5-5.5); Sodium, Blood 136.0 mmol/L (136-145)
--- NOTE | 2024-10-10 06:26 | NUR ---
SHIFT SUMMARY: Pt is admitted for hyponatremia and is a full code. Is alert and able to make needs known. ADLs have been mostly 1p. Denies pain or discomfort when asked. Dressing to left inner thigh CDI. bladder scanned x2. Both times were less than 350ml.
[2024-10-10 07:54] VITALS: BP 104/74
[2024-10-10] MEDS ORDERED: TAMS.4ER PO (11:19)
[2024-10-10] MEDS ORDERED: SODCHL1 PO (11:19)
--- NOTE | 2024-10-10 14:22 | NUR ---
DISCHARGE SUMMARY PATIENT DISCHARGED HOME WITH HOME HEALTH, TO DRIVE. IV REMOVED WITHOUT COMPLICATION. WOUND TO LEFT LEG, LINEAR INCISION FROM GROIN TO LOWER LEG, STERI STRIPS LOOSE, NO SIGNS OF INFECTION, BRUISING. DISCHARGE PACKET GIVEN AND REVIEWED, QUESTIONS ANSWERED. 2 HARD SCRIPTS SENT. VOICING CONCERNS REGARDING TAKING PATIENT HOME. RECITED PT NOTES TO HER AND REINFORCED THAT HE DOESN'T MEET QUALIFICATIONS FOR PLACEMENT AND THAT HE WOULD BE RECEIVING HOME HEALTH SERVICES. WAS NOT PLEASED WITH THIS EITHER. WAS GIVEN PATIENT ADVOCATE NUMBER. ON DISCHARGE PATIENT WAS ABLE TO TRANSFER SBA WITH WALKER, DRESS HIMSELF WITH MINIMAL ASSISTANCE.
== END 2024-10-10 14:10 | disposition home health service (06) | DRG 641 ==
LOC: ER 14:02 → MEDS 16:48
PROVIDERS: Emergency Medicine; ADMIT Internal Medicine
DX: E87.70 Fluid overload, unspecified (principal); E87.1 Hypo-osmolality and hyponatremia; I71.40 Abdominal aortic aneurysm, without rupture, unspecified; N40.1 Benign prostatic hyperplasia with lower urinary tract symptoms; R33.8 Other retention of urine; R54 Age-related physical debility; G40.909 Epilepsy, unspecified, not intractable, without status epilepticus; J44.9 Chronic obstructive pulmonary disease, unspecified; I35.0 Nonrheumatic aortic (valve) stenosis; Z98.890 Other specified postprocedural states; I73.9 Peripheral vascular disease, unspecified; Z79.899 Other long term (current) drug therapy
CPT/HCPCS: 36415; 51701; 71045; 80048; 80053; 81001; 83735; 83880; 83930; 83935; 84300; 84443; 85014; 85018; 85025; 85610; 93005; 93010; 93306; 94640; 94664; 94760; 97110; 97116; 97161; 97165; 97530; 97535; 99285-25; A9270; J1650; J2405; J7040

== ENCOUNTER 2024-10-12 11:39 | Emergency (ER) | payer MEDICARE ==
[~2024-10-12] VITALS: Ht 182.9 cm; Wt 99.8 kg
[~2024-10-12 11:39] MED LIST changes: +SODCHL1 PO
[2024-10-12 13:14] LABS: BASOPHILS ABSOLUTE AUTO 0.06 K/mm3 (0.00-0.23); BASOPHILS PERCENT AUTO 1 % (0-2); EOSINOPHILS ABSOLUTE AUTO 0.23 K/mm3 (0.00-0.68); EOSINOPHILS PERCENT AUTO 4 % (0-6); Hematocrit 35.6 % (37.0-53.0); Hemoglobin 11.6 g/dL (13.5-17.5); IMMATURE GRAN ABSOLUTE AUTO 0.02 K/mm3 (0.00-0.10); IMMATURE GRAN PERCENT AUTO 0 % (0-1); LYMPHOCYTES ABSOLUTE AUTO 1.70 K/mm3 (0.84-5.20); LYMPHOCYTES PERCENT AUTO 29 % (21-46); MONOCYTES ABSOLUTE AUTO 0.71 K/mm3 (0.16-1.47); MONOCYTES PERCENT AUTO 12 % (4-13); Mean Corpuscular HGB Conc 32.6 g/dL (31.5-36.5); Mean Corpuscular Volume 90 fL (80-100); NEUTROPHILS ABSOLUTE AUTO 3.19 K/mm3 (1.96-9.15); NEUTROPHILS PERCENT AUTO 54 % (41-73); NRBC ABSOLUTE 0.00 K/mm3 (0.00-0.02); NRBC Auto 0.0 /100 WBC (0.0-0.2); Platelet Count 249 K/mm3 (150-400); RDW Coefficient Variation 14.5 % (11.7-14.2); RDW Standard Deviation 48.1 fL (35.1-46.3)
[2024-10-12 13:32] LABS: Source, Urine Straight Cath
[2024-10-12 13:42] LABS: Anion Gap 4.0 mmol/L (3-11); Blood Urea Nitrogen 34.0 mg/dL (8-24); CO2, Blood 29.0 mmol/L (21-32); Calcium, Blood 8.7 mg/dL (8.5-10.1); Chloride, Blood 105.0 mmol/L (98-108); Creatinine, Blood 0.84 mg/dL (0.60-1.20); Glucose, Blood 119.0 mg/dL (70-99); Potassium, Blood 4.4 mmol/L (3.5-5.5); Sodium, Blood 134.0 mmol/L (136-145)
[2024-10-12 13:43] LABS: Bilirubin, Urine Neg (Neg); Color, Urine Yellow (P-Yellow); Glucose Qualitative, Urine Neg (Neg); Ketones, Urine Neg (Neg); Leukocyte Esterase, Urine 1+ (Neg); Protein, Urine 1+ (Neg); Specific Gravity, Urine 1.015 (1.003-1.022); Urobilinogen, Urine NORM (Normal)
[2024-10-12 13:54] LABS: Red Blood Cells, Urine 0-2 /hpf (0-2)
[2024-10-12] MEDS ORDERED: CefTRIAXone Sodium 1,000 MG in NS 50 ML IV ONE (16:00)
[2024-10-13 13:30] VITALS: BP 135/68
== END 2024-10-13 13:30 ==
LOC: ER 11:39
PROVIDERS: Emergency Medicine
DX: Z48.812 Encounter for surgical aftercare following surgery on the circulatory system (principal); N39.0 Urinary tract infection, site not specified; R53.1 Weakness; R29.6 Repeated falls; J44.9 Chronic obstructive pulmonary disease, unspecified; F17.210 Nicotine dependence, cigarettes, uncomplicated; Z79.82 Long term (current) use of aspirin; Z79.899 Other long term (current) drug therapy
CPT/HCPCS: 36415; 51702; 51798; 76882; 80048; 81001; 85025; 87077; 87086; 87186; 93926; 97161; 97530; 99285-25; A9270